=== PATIENT | female | born 1945 | race Caucasian/White ===

== ENCOUNTER 2021-09-30 10:23 | Day surgery (SDC) | payer MEDICARE ==
[2021-09-30] VITALS (9 sets, daily range): BP systolic 96–129; BP diastolic 61–86
[~2021-09-30] VITALS: Ht 162.6 cm; Wt 85.1 kg
[2021-09-30] MEDS ORDERED: diphenhydrAMINE 25mg capsule PO PRN (10:55)
[2021-09-30] MEDS ORDERED: LORazepam 0.5 MG tablet PO PRN (10:55)
[2021-09-30] MEDS ORDERED: normal saline 1,000 ML IV SCH (10:55)
[2021-09-30] MEDS ORDERED: BUDE10.2 INH (11:01)
[2021-09-30] MEDS ORDERED: MONT-40 PO (11:01)
[2021-09-30] MEDS ORDERED: ATOR10TA70 PO (11:01)
[2021-09-30] MEDS ORDERED: METO-384 PO (11:01)
[2021-09-30] MEDS ORDERED: LEVO125T8 PO (11:01)
[2021-09-30] MEDS ORDERED: ALBU8.5H17 INH (11:01)
[2021-09-30] MEDS ORDERED: IRBE300T18 PO (11:01)
[2021-09-30] MEDS ORDERED: OMEP40CA21 PO (11:01)
[2021-09-30] MEDS ORDERED: GABA600T13 PO (11:01)
[2021-09-30] MEDS ORDERED: FLUT15.87 NS (11:01)
[2021-09-30] MEDS ORDERED: POTA-207 PO (11:01)
[2021-09-30] MEDS ORDERED: EMPA25TA PO (11:01)
[2021-09-30] MEDS ORDERED: DULO60CA65 PO (11:01)
[2021-09-30] MEDS ORDERED: AMLO10TA13 PO (11:01)
[2021-09-30 11:48] LABS: ANION GAP 10 (8-16); BLOOD UREA NITROGEN 17 MG/DL (7-18); BUN/CREATININE RATIO 13.1 (6.6-38.0); CALCIUM 9.4 MG/DL (8.5-10.1); CHLORIDE 108 MMOL/L (99-107); GLUCOSE 126 MG/DL (70-104); POTASSIUM 4.7 MMOL/L (3.5-5.1); SODIUM 147 MMOL/L (135-145); TOTAL CARBON DIOXIDE 28.6 MMOL/L (24-32); eGFR 40 ML/MIN
[2021-09-30 11:49] LABS: BASOPHILS % (AUTO) 0.5 % (0-1); EOSINOPHILS # (AUTO) 0.1 X10'3 (0-0.9); HEMATOCRIT 43.1 % (35.0-45.0); HEMOGLOBIN 14.6 g/dl (12.0-16.0); LYMPHOCYTES # (AUTO) 1.3 X10'3 (1.1-4.8); LYMPHOCYTES % (AUTO) 24.4 % (21-51); MEAN CORPUSCULAR HEMOGLOBIN 32.8 PG (27.0-31.0); MEAN CORPUSCULAR HGB CONC 33.8 g/dL (33.0-36.5); MEAN PLATELET VOLUME 8.7 FL (7.4-10.4); MONOCYTES # (AUTO) 0.4 X10'3 (0-0.9); MONOCYTES % (AUTO) 7.5 % (2-12); NEUTROPHILS # (AUTO) 3.5 X10'3 (1.8-7.7); NEUTROPHILS % (AUTO) 65.6 % (42-75); PLATELET COUNT 159 X10'3 (140-440); RED BLOOD COUNT 4.44 X10'6 (4.20-5.60); RED CELL DISTRIBUTION WIDTH 13.5 % (11.5-14.5); WHITE BLOOD COUNT 5.4 X10'3 (4.5-11.0)
[2021-09-30] MEDS ORDERED: verapamil 2.5 mg/ml inj IV ONE (11:59)
[2021-09-30] MEDS ORDERED: nitroGLYCERIN-Tridil 50MG/D5W 250 ML IV ONE (11:59)
[2021-09-30] MEDS ORDERED: midazolam 1 mg/ML 2ml injection ONE (11:59)
[2021-09-30] MEDS ORDERED: iohexol 350MG/ML 100ml bottle IV ONE ×3 (12:00→13:29)
[2021-09-30] MEDS ORDERED: fentaNYL/PF 50MCG/1 ML 2ML syringe ONE (12:00)
[2021-09-30] MEDS ORDERED: heparin 1,000unit/ml 10ml vial 10 ML ONE (12:00)
[2021-09-30] MEDS ORDERED: LIDOcaine 1%/PF 5ML 10 MG/ML VIAL ONE (12:00)
[2021-09-30 12:14] LABS: APTT 25 SECONDS (22-32)
[2021-09-30] MEDS ORDERED: clopidogrel 300mg tablet ONE (13:13)
[2021-09-30] MEDS ORDERED: aspirin 325mg tablet ONE (13:17)
[2021-09-30] MEDS ORDERED: HYDROcodone/acetaminophen 10/325mg tab PO PRN (14:15)
[2021-09-30] MEDS ORDERED: HYDROcodone/acetaminophen 5mg/325mg tablet PO PRN (14:15)
== END 2021-09-30 17:05 | disposition home or self-care (01) ==
LOC: SSTAY O 10:23
PROVIDERS: ATTEND Student in an Organized Health Care Education/Training Program
DX: R94.39 Abnormal result of other cardiovascular function study (principal); I25.10 Atherosclerotic heart disease of native coronary artery without angina pectoris; I27.20 Pulmonary hypertension, unspecified; E11.22 Type 2 diabetes mellitus with diabetic chronic kidney disease; I12.9 Hypertensive chronic kidney disease with stage 1 through stage 4 chronic kidney disease, or unspecified chronic kidney disease; N18.9 Chronic kidney disease, unspecified; G47.33 Obstructive sleep apnea (adult) (pediatric); Z79.899 Other long term (current) drug therapy; Z79.01 Long term (current) use of anticoagulants; K21.9 Gastro-esophageal reflux disease without esophagitis
CPT/HCPCS: 36415; 80048; 82948; 85025; 85610; 85730; 93005; 93458; 99152; 99153; C1725; C1751; C1769; C1874; C1894; C9600; J1644; J2250; J3010; J3490; J7030; Q0163; Q9967; A6258; A6402

== ENCOUNTER 2021-10-08 14:14 | Emergency (ER) | payer MEDICARE ==
[~2021-10-08] VITALS: Ht 162.6 cm; Wt 89.1 kg
[~2021-10-08 14:14] MED LIST: ALBU8.5H17 INH; AMLO10TA13 PO; ATOR10TA70 PO; BUDE10.2 INH; DULO60CA65 PO; EMPA25TA PO; FLUT15.87 NS; GABA600T13 PO; IRBE300T18 PO; LEVO125T8 PO; METO-384 PO; MONT-40 PO; OMEP40CA21 PO; POTA-207 PO
[2021-10-08 14:47] LABS: BASOPHILS % (AUTO) 0.5 % (0-1); EOSINOPHILS % (AUTO) 0.4 % (0-6); HEMATOCRIT 42.5 % (35.0-45.0); HEMOGLOBIN 14.2 g/dl (12.0-16.0); LYMPHOCYTES # (AUTO) 0.2 X10'3 (1.1-4.8); LYMPHOCYTES % (AUTO) 3.5 % (21-51); MEAN CORPUSCULAR HEMOGLOBIN 32.6 PG (27.0-31.0); MEAN CORPUSCULAR HGB CONC 33.5 g/dL (33.0-36.5); MEAN CORPUSCULAR VOLUME 97.2 FL (78-98); MEAN PLATELET VOLUME 8.5 FL (7.4-10.4); MONOCYTES # (AUTO) 0.3 X10'3 (0-0.9); MONOCYTES % (AUTO) 4.8 % (2-12); NEUTROPHILS # (AUTO) 6.4 X10'3 (1.8-7.7); NEUTROPHILS % (AUTO) 90.8 % (42-75); PLATELET COUNT 132 X10'3 (140-440); RED BLOOD COUNT 4.37 X10'6 (4.20-5.60); RED CELL DISTRIBUTION WIDTH 13.7 % (11.5-14.5); WHITE BLOOD COUNT 7.1 X10'3 (4.5-11.0)
[2021-10-08 14:56] LABS: ANION GAP 10 (8-16); BILIRUBIN,TOTAL 0.7 MG/DL (0.1-1.0); BLOOD UREA NITROGEN 17 MG/DL (7-18); BUN/CREATININE RATIO 12.3 (6.6-38.0); CHLORIDE 100 MMOL/L (99-107); CREATININE 1.38 MG/DL (0.40-0.90); GLUCOSE 149 MG/DL (70-104); SODIUM 138 MMOL/L (135-145); TOTAL CARBON DIOXIDE 27.7 MMOL/L (24-32); TOTAL PROTEIN 7.4 G/DL (6.4-8.2); eGFR 37 ML/MIN
[2021-10-08 14:57] LABS: ALANINE AMINOTRANSFERASE 34 U/L (12-78); ALBUMIN 3.5 G/DL (3.4-5.0); ALBUMIN/GLOBULIN RATIO 0.9 (1.1-1.5); ALKALINE PHOSPHATASE 56 IU/L (46-116); ASPARTATE AMINO TRANSFERASE 58 U/L (10-37)
[2021-10-08] MEDS ORDERED: acetaminophen 325mg tablet PO STA (17:29)
--- NOTE | 2021-10-08 18:05 | NUR ---
76YR OLD FEMALE PATIENT, AWAKE, ALERT AND ORIENTEDX4. ON ROOM AIR, NO FORM OF DISTRESS. VSS. COVID/FLU SWAB COLLECTED
[2021-10-08 18:25] LABS: CLARITY,URINE CLEAR (Clear); COLOR,URINE YELLOW (Yellow); GLUCOSE, URINE >=1000 mg/dl (Neg); KETONES,URINE TRACE mg/dl (Neg); LEUKOCYTE ESTERASE ,URINE NEGATIVE (Neg); NITRITES, URINE NEGATIVE (Neg); OCCULT BLOOD,URINE SMALL (Neg); PROTEIN,URINE 30 mg/dl (Neg)
[2021-10-08 18:34] LABS: D-DIMER 1.76 MG/L FEU (0-0.50)
[2021-10-08 18:34] LABS: UA COLLECTION TYPE CLN CATCH MIDSTREAM
[2021-10-08 18:42] LABS: BACTERIA,URINE FEW /HPF (Neg); MUCUS STRANDS MODERATE /LPF (Neg); RBC,URINE 0-2 /HPF (0-2); SQUAMOUS EPITHELIAL CELL,UR FEW /LPF (FEW); WBC,URINE 0-4 /HPF (0-4)
[2021-10-08 18:43] LABS: TRANSITIONAL EPI CELLS,URINE FEW /HPF; YEAST FEW /HPF (NEGATIVE)
[2021-10-08] MEDS ORDERED: iohexol 350MG/ML 100ml bottle IV ONE (19:44)
--- NOTE | 2021-10-08 19:51 | NUR ---
PT TO CT
[2021-10-08 21:33] VITALS: BP 116/74
== END 2021-10-08 21:34 | disposition home or self-care (01) ==
LOC: ER 14:15
DX: R53.1 Weakness (principal); R06.02 Shortness of breath; R50.9 Fever, unspecified; J44.9 Chronic obstructive pulmonary disease, unspecified; K21.9 Gastro-esophageal reflux disease without esophagitis; E11.9 Type 2 diabetes mellitus without complications; Z87.891 Personal history of nicotine dependence
CPT/HCPCS: 36415; 71045; 71275; 80053; 81001; 83880; 84145; 84484; 85025; 85379; 87502; 87503; 87635; 93005; 99285; C9803; J3490; Q9967

== ENCOUNTER 2021-10-10 11:27 | Inpatient (IN) | payer MEDICARE ==
[~2021-10-10] VITALS: Ht 162.6 cm; Wt 92.3 kg
--- NOTE | 2021-10-10 12:10 | NUR ---
Pt c/o sb, denies cp or other sx, connceted to chicken cleaner and o2 bnc @2ltrs.
[2021-10-10] MEDS ORDERED: DOXYCYCLINE 100MG CAPSULE PO STA (13:23)
[2021-10-10] MEDS ORDERED: CefTRIAXone/D5W-Rocephin 1gm 50 ML IV ONE (13:25)
[2021-10-10] MEDS ORDERED: acetaminophen 325mg tablet PO ONE (13:25)
[2021-10-10] MEDS ORDERED: ringers solution, lacted 1,000 ML IV ONE ×2 (13:30→14:55)
[2021-10-10 13:43] LABS: CLARITY,URINE CLEAR (Clear); COLOR,URINE YELLOW (Yellow); GLUCOSE, URINE 500 mg/dl (Neg); KETONES,URINE 40 mg/dl (Neg); LEUKOCYTE ESTERASE ,URINE NEGATIVE (Neg); NITRITES, URINE NEGATIVE (Neg); OCCULT BLOOD,URINE MODERATE (Neg); PROTEIN,URINE 100 mg/dl (Neg)
[2021-10-10 13:44] LABS: BASOPHILS % (AUTO) 0.1 % (0-1); EOSINOPHILS % (AUTO) 0 % (0-6); HEMATOCRIT 42.7 % (35.0-45.0); HEMOGLOBIN 14.4 g/dl (12.0-16.0); LYMPHOCYTES # (AUTO) 0.1 X10'3 (1.1-4.8); LYMPHOCYTES % (AUTO) 1.3 % (21-51); MEAN CORPUSCULAR HEMOGLOBIN 32.8 PG (27.0-31.0); MEAN CORPUSCULAR HGB CONC 33.8 g/dL (33.0-36.5); MEAN PLATELET VOLUME 8.9 FL (7.4-10.4); MONOCYTES # (AUTO) 0.2 X10'3 (0-0.9); MONOCYTES % (AUTO) 2.2 % (2-12); NEUTROPHILS # (AUTO) 8.4 X10'3 (1.8-7.7); NEUTROPHILS % (AUTO) 96.4 % (42-75); PLATELET COUNT 108 X10'3 (140-440); RED CELL DISTRIBUTION WIDTH 13.5 % (11.5-14.5); WHITE BLOOD COUNT 8.7 X10'3 (4.5-11.0)
[2021-10-10 13:54] LABS: UA COLLECTION TYPE STRAIGHT CATH
[2021-10-10 13:57] LABS: ALANINE AMINOTRANSFERASE 42 U/L (12-78); ALBUMIN/GLOBULIN RATIO 0.7 (1.1-1.5); ALKALINE PHOSPHATASE 63 IU/L (46-116); ANION GAP 14 (8-16); ASPARTATE AMINO TRANSFERASE 62 U/L (10-37); BILIRUBIN,TOTAL 1.4 MG/DL (0.1-1.0); BLOOD UREA NITROGEN 23 MG/DL (7-18); BUN/CREATININE RATIO 15.9 (6.6-38.0); CALCIUM 8.7 MG/DL (8.5-10.1); CHLORIDE 97 MMOL/L (99-107); CREATININE 1.45 MG/DL (0.40-0.90); GLUCOSE 136 MG/DL (70-104); POTASSIUM 3.7 MMOL/L (3.5-5.1); SODIUM 135 MMOL/L (135-145); TOTAL CARBON DIOXIDE 23.7 MMOL/L (24-32); TOTAL PROTEIN 7.1 G/DL (6.4-8.2); eGFR 35 ML/MIN
[2021-10-10 14:01] LABS: MUCUS STRANDS FEW /LPF (Neg); SQUAMOUS EPITHELIAL CELL,UR FEW /LPF (FEW)
[2021-10-10 14:02] LABS: BACTERIA,URINE 1+ /HPF (Neg); RBC,URINE 0-2 /HPF (0-2); WBC,URINE 0-4 /HPF (0-4)
[2021-10-10 14:02] LABS: MAGNESIUM 1.8 MG/DL (1.5-2.4)
[2021-10-10] MEDS ORDERED: vancomycin/NS 1 GM ADD-VANTAGE 250 ML X 1 DOSE IV ONE (15:05)
--- NOTE | 2021-10-10 16:25 | NUR ---
Repositioned pt in bed, no acute distress noted, pt continues to be monitored for changes.
--- NOTE | 2021-10-10 16:46 | NUR ---
CRITICAL LAB OF REPEAT TROPONIN OF 133. DR. SALGADO MESSAGED WITH RESULT. MESSAGE: ER BED #1: HAL. REPEAT TROPONIN 133. THANKS, JA [id number]
--- NOTE | 2021-10-10 17:30 | NUR ---
Pt had large brown, liquid bowel movement, Dr Cali at bedside ordered stool sample for c-diff.
[2021-10-10] MEDS ORDERED: mag hydrox/Alum hydrox/simeth 30ml oral suspension PO PRN (18:25)
[2021-10-10] MEDS ORDERED: magnesium 4gm in 100ml NS 100 ML IV PRN (18:25)
[2021-10-10] MEDS: normal saline 1000ml 1,000 ML IV SCH (18:25)
[2021-10-10] MEDS ORDERED: ondansetron/PF 4mg/2ml inj IV PRN (18:25)
[2021-10-10] MEDS ORDERED: POTASSIUM BICARB 20meq eff tab 20 MEQ TABLET.EFF PO PRN (18:25)
[2021-10-10] MEDS ORDERED: acetaminophen 650mg rectal suppository RC PRN (18:25)
[2021-10-10] MEDS ORDERED: magnesium hydroxide 30ml (MOM) UD suspension PO PRN (18:25)
[2021-10-10] MEDS ORDERED: heparin 10,000 units/1 ML INJ IV ONE (18:25)
[2021-10-10] MEDS ORDERED: diphenhydrAMINE 25mg capsule PO PRN (18:25)
[2021-10-10] MEDS ORDERED: HYDROcodone/acetaminophen 5mg/325mg tablet PO PRN (18:25)
[2021-10-10] MEDS ORDERED: potassium CL 10mEq/100ml bag 100 ML IV PRN (18:25)
[2021-10-10] MEDS ORDERED: PERFLUTREN PROTEIN-A MICROSPHR (Optison) 0.22 MG/ML 3ML VIAL IV ONE (18:25)
[2021-10-10] MEDS ORDERED: magnesium 2GM in 50ml NS 50 ML IV PRN (18:25)
[2021-10-10] MEDS ORDERED: magnesium Cl slow-release 64mg tablet PO PRN (18:25)
[2021-10-10] MEDS ORDERED: morphine 2 MG/ML inj. syringe IV PRN ×2 (18:25)
[2021-10-10] MEDS ORDERED: acetaminophen 325mg tablet PO PRN ×2 (18:25)
[2021-10-10] MEDS ORDERED: CLOP75TA34 PO (18:45)
[2021-10-10] MEDS ORDERED: OXYB10TA30 PO (18:45)
[2021-10-10] MEDS ORDERED: METO-384 PO (18:45)
[2021-10-10] MEDS ORDERED: ATOR40TA72 PO (18:45)
[2021-10-10] MEDS: HEPARIN SOD,PORK IN 0.45% NACL 250 ML IV SCH (18:46)
[2021-10-10] MEDS: clopidogrel 75mg tablet PO SCH (18:55)
[2021-10-10] MEDS ORDERED: albuterol 2.5 MG/3 ML nebule NEB PRN (18:55)
[2021-10-10] MEDS ORDERED: aspirin 81mg tab.chew PO ONE (19:00)
[2021-10-10] MEDS ORDERED: glucagon, human recombinant 1mg kit SUBCUT PRN (19:00)
[2021-10-10] MEDS ORDERED: dextrose 50%-water 50ml dispensing syringe IV PRN ×2 (19:00)
[2021-10-10] MEDS ORDERED: DEXTROSE 15 GM of carb/4 tabs (each vial/BOTTLE has 4 tablets) PO PRN ×2 (19:00)
[2021-10-10] MEDS ORDERED: MESSAGE TO PHARMACY PO ONE (19:00)
[2021-10-10] MEDS ORDERED: aspirin 325mg tablet PO ONE (19:00)
[2021-10-10] MEDS: docusate sod 100mg capsule PO SCH (20:00)
[2021-10-10] MEDS: K and/or MAG REPLACEMENT MC SCH (20:00)
[2021-10-10] MEDS ORDERED: non-formulary drug (Budesonide/Formoterol Fumarate (Symbicort 160-4.5 Mcg Inhaler) 2 PUFFS INH SCH (20:00)
[2021-10-10 20:44] LABS: APTT 131 SECONDS (22-32)
[2021-10-10] MEDS: lactobacillus rhamnosus 10,000 MMU CELLS/CAPSULE PO SCH (20:44)
[2021-10-10] MEDS: gabapentin 300mg capsule PO SCH (20:44)
[2021-10-10] MEDS: atorvastatin 20mg tablet PO SCH (20:45)
[2021-10-10] MEDS: metoprolol succinate 25mg (24-HOUR) SR. Tablet PO SCH (20:46)
[2021-10-10] MEDS: piperacillin/tazo 3.375gm/50ml 50 ML IV SCH (20:46)
[2021-10-10 20:59] LABS: HEMOGLOBIN A1C 6.5 % (4.5-6.2)
--- NOTE | 2021-10-10 21:26 | NUR ---
PTT DRAWN WITHOUT STOPPING HEPARIN. NIRAJ MADDEN AWARE. PTT IS BEING REDRAWN
[2021-10-10] MEDS: insulin glargine (Lantus) pen - multi-dose SQ SCH (21:40)
[2021-10-10 21:55] LABS: APTT 63 SECONDS (22-32)
[2021-10-10 22:00] VITALS: BP 117/70
--- NOTE | 2021-10-10 22:33 | NUR ---
Patient Troponin was 207 at 22:00 PM, notified no new order. Patient BS at 21:40 PM was 145, it is not protocol, Patient does not need lantus
[2021-10-10 23:16] VITALS: BP 112/61
[2021-10-10 23:17] VITALS: BP 105/61
[2021-10-10] MEDS: albuterol 2.5 MG/3 ML nebule NEB SCH (23:58)
[2021-10-10] MEDS: budesonide 0.5mg/2ml UD nebule IH SCH (23:58)
[2021-10-11] VITALS (8 sets, daily range): BP systolic 105–152; BP diastolic 54–76
[2021-10-11] MEDS: albuterol 2.5 MG/3 ML nebule NEB SCH ×3 (02:16→14:31)
[2021-10-11 06:35] LABS: BASOPHILS % (AUTO) 0.2 % (0-1); EOSINOPHILS % (AUTO) 0.1 % (0-6); HEMATOCRIT 38.1 % (35.0-45.0); HEMOGLOBIN 12.7 g/dl (12.0-16.0); LYMPHOCYTES # (AUTO) 0.4 X10'3 (1.1-4.8); LYMPHOCYTES % (AUTO) 9.5 % (21-51); MEAN CORPUSCULAR HEMOGLOBIN 32.4 PG (27.0-31.0); MEAN CORPUSCULAR HGB CONC 33.3 g/dL (33.0-36.5); MEAN CORPUSCULAR VOLUME 97.2 FL (78-98); MONOCYTES # (AUTO) 0.3 X10'3 (0-0.9); MONOCYTES % (AUTO) 5.4 % (2-12); NEUTROPHILS % (AUTO) 84.8 % (42-75); PLATELET COUNT 100 X10'3 (140-440); RED BLOOD COUNT 3.92 X10'6 (4.20-5.60); RED CELL DISTRIBUTION WIDTH 13.8 % (11.5-14.5); WHITE BLOOD COUNT 4.7 X10'3 (4.5-11.0)
[2021-10-11 06:44] LABS: ALANINE AMINOTRANSFERASE 40 U/L (12-78); ALBUMIN 2.6 G/DL (3.4-5.0); ALBUMIN/GLOBULIN RATIO 0.8 (1.1-1.5); ALKALINE PHOSPHATASE 47 IU/L (46-116); ANION GAP 10 (8-16); ASPARTATE AMINO TRANSFERASE 57 U/L (10-37); BILIRUBIN,TOTAL 0.7 MG/DL (0.1-1.0); BLOOD UREA NITROGEN 22 MG/DL (7-18); BUN/CREATININE RATIO 18.5 (6.6-38.0); CALCIUM 8.1 MG/DL (8.5-10.1); CHLORIDE 105 MMOL/L (99-107); CREATININE 1.19 MG/DL (0.40-0.90); GLUCOSE 105 MG/DL (70-104); POTASSIUM 3.2 MMOL/L (3.5-5.1); SODIUM 141 MMOL/L (135-145); TOTAL CARBON DIOXIDE 26.5 MMOL/L (24-32); TOTAL PROTEIN 5.9 G/DL (6.4-8.2); eGFR 44 ML/MIN
[2021-10-11 06:46] LABS: CHOL/HDL RATIO 6.3 (0.00-4.99); CHOLESTEROL 107 MG/DL (0-200); HDL CHOLESTEROL 17 MG/DL (35-60); LDL CHOLESTEROL 47 MG/DL (50-100); PHOSPHORUS 2.5 MG/DL (2.3-4.5); TRIGLYCERIDES 223 MG/DL (20-135)
--- NOTE | 2021-10-11 07:04 | NUR ---
Problems reprioritized. Patient report given to RN Siobhan, questions answered & plan of care reviewed with .
[2021-10-11] MEDS: docusate sod 100mg capsule PO SCH ×2 (07:28→19:44)
[2021-10-11] MEDS: levoTHYROXINE 125mcg tablet PO SCH (07:37)
[2021-10-11] MEDS: pantoprazole 40mg Tablet.DR PO SCH (07:38)
[2021-10-11] MEDS: losartan 50mg tablet PO SCH (07:38)
[2021-10-11] MEDS: lactobacillus rhamnosus 10,000 MMU CELLS/CAPSULE PO SCH ×2 (07:38→19:45)
[2021-10-11] MEDS: montelukast 10mg tablet PO SCH (07:38)
[2021-10-11] MEDS: duloxetine 20mg capsule.DR PO SCH (07:38)
[2021-10-11] MEDS: clopidogrel 75mg tablet PO SCH (07:39)
[2021-10-11] MEDS: piperacillin/tazo 3.375gm/50ml 50 ML IV SCH ×2 (07:39→16:15)
[2021-10-11] MEDS: oxybutynin 5mg tablet PO SCH ×3 (07:39→19:49)
[2021-10-11] MEDS: metoprolol succinate 25mg (24-HOUR) SR. Tablet PO SCH ×2 (07:39→22:13)
[2021-10-11] MEDS: gabapentin 300mg capsule PO SCH ×2 (07:39→19:44)
[2021-10-11] MEDS: amLODIPine 5mg tablet PO SCH (07:39)
[2021-10-11] MEDS: fluticasone nasal spray 16GM bottle NS SCH (07:40)
[2021-10-11] MEDS: heparin 10,000 units/1 ML INJ IV PRN (07:43)
[2021-10-11] MEDS: normal saline 1000ml 1,000 ML IV SCH ×2 (07:45→12:51)
[2021-10-11] MEDS: budesonide 0.5mg/2ml UD nebule IH SCH (08:16)
[2021-10-11] MEDS: K and/or MAG REPLACEMENT MC SCH ×2 (08:55→20:00)
[2021-10-11 09:00] LABS: C DIFF SPECIMEN=DIARRHEA? ACCEPTABLE; C DIFFICILE TOXINS A&B NEGATIVE (Neg)
--- NOTE | 2021-10-11 14:49 | NUR ---
Message: Mery Huggins has change in condition, work of breathing worse, wheezy, RT TX no help. placed on 3 lpm NC. Can we get ABG CXR and EKG please Siobhan Pt c/o chilling but afibrile. RT came for tx found her at 81% completed tx and placed on 3 lpm. Notified rn hemodialysis charge. Orders rec'd from Dr Cali . will continue to monitor closely.
[2021-10-11 15:12] LABS: ABG BASE EXCESS -4.1 mmol/L (-2.0-2.0); ABG HCO3 19.8 mmol/L (22.0-26.0); ABG OXYGEN SATURATION 94.7 % (94-97); ABG PCO2 (T) 32.8 mmHg (32.0-45.0); ABG PO2 (T) 69.8 mmHg (75.0-100.0); ALLEN'S TEST POSITIVE; FCOHb 0.1 % (0.0-3.9); FLOW 3 L/min; FMetHb 0.3 % (0.0-1.5); FO2Hb 94.3 % (94-97); TOTAL HEMOGLOBIN 13.6 G/dl (12.0-16.0)
[2021-10-11] MEDS ORDERED: methylPREDNISolone sod succ 125mg/2ml vial IV ONE (15:45)
[2021-10-11] MEDS ORDERED: ipratropium/albuterol 3ml nebule NEB PRN (15:45)
[2021-10-11] MEDS ORDERED: furosemide 10 MG/1 ML 10ml inj IV ONE (15:50)
[2021-10-11] MEDS ORDERED: vancomycin inj 500 MG in normal saline 100ml IV soln 100 ML IV SCH (16:00)
--- NOTE | 2021-10-11 16:05 | NUR ---
Reported pt rash to back from neck to upper thighs posterior only, pt being placed on Solumedrol.
[2021-10-11] MEDS: VANCOMYCIN 750MG IV in NS 250 ML IV SCH (16:15)
[2021-10-11 18:18] LABS: CLARITY,URINE CLEAR (Clear); COLOR,URINE YELLOW (Yellow); GLUCOSE, URINE 250 mg/dl (Neg); KETONES,URINE NEGATIVE (Neg); LEUKOCYTE ESTERASE ,URINE NEGATIVE (Neg); NITRITES, URINE NEGATIVE (Neg); OCCULT BLOOD,URINE TRACE-INTACT (Neg); PROTEIN,URINE NEGATIVE (Neg); UROBILINOGEN,URINE 0.2 E.U/dL (0.2-1.0)
[2021-10-11 18:30] LABS: UA COLLECTION TYPE STRAIGHT CATH
--- NOTE | 2021-10-11 18:35 | NUR ---
Patient in room PCU 3011. I have received report from Siobhan VILLARREAL and had the opportunity to ask questions and assume patient care.
[2021-10-11 18:41] LABS: BACTERIA,URINE FEW /HPF (Neg); RBC,URINE 0-2 /HPF (0-2); SQUAMOUS EPITHELIAL CELL,UR FEW /LPF (FEW); WBC,URINE NONE SEEN /HPF (0-4)
--- NOTE | 2021-10-11 18:43 | NUR ---
Problems reprioritized. Patient report given, questions answered & plan of care reviewed with CHERELLE Segal.
[2021-10-11] MEDS: ipratropium/albuterol 3ml nebule NEB SCH ×2 (18:52→23:19)
[2021-10-11] MEDS: furosemide 40mg/4ml inj IV SCH (19:44)
[2021-10-11] MEDS: methylPREDNISolone sod succ 125mg/2ml vial IV SCH (19:44)
[2021-10-11] MEDS: HYDROcodone/acetaminophen 10/325mg tab PO PRN (19:46)
[2021-10-11] MEDS: POTASSIUM BICARB 20meq eff tab 20 MEQ TABLET.EFF PO PRN (22:13)
[2021-10-11] MEDS: atorvastatin 20mg tablet PO SCH (22:14)
[2021-10-11] MEDS: insulin glargine (Lantus) pen - multi-dose SQ SCH (22:47)
--- NOTE | 2021-10-11 23:00 | NUR ---
Pt found to be diaphoretic while sleeping.
[2021-10-12] VITALS (7 sets, daily range): BP systolic 92–111; BP diastolic 53–66
[2021-10-12] MEDS: piperacillin/tazo 3.375gm/50ml 50 ML IV SCH ×2 (00:39→09:58)
[2021-10-12] MEDS: HYDROcodone/acetaminophen 10/325mg tab PO PRN (00:40)
[2021-10-12] MEDS: POTASSIUM BICARB 20meq eff tab 20 MEQ TABLET.EFF PO PRN ×4 (02:38→20:44)
[2021-10-12] MEDS: methylPREDNISolone sod succ 125mg/2ml vial IV SCH ×4 (02:38→20:44)
[2021-10-12] MEDS: ipratropium/albuterol 3ml nebule NEB SCH ×6 (02:39→22:45)
[2021-10-12] MEDS: HEPARIN SOD,PORK IN 0.45% NACL 250 ML IV SCH (02:59)
[2021-10-12 06:30] LABS: BASOPHILS % (AUTO) 0.4 % (0-1); EOSINOPHILS % (AUTO) 0 % (0-6); HEMATOCRIT 39.9 % (35.0-45.0); HEMOGLOBIN 13.4 g/dl (12.0-16.0); LYMPHOCYTES # (AUTO) 0.4 X10'3 (1.1-4.8); LYMPHOCYTES % (AUTO) 8.7 % (21-51); MEAN CORPUSCULAR HEMOGLOBIN 32.8 PG (27.0-31.0); MEAN CORPUSCULAR HGB CONC 33.6 g/dL (33.0-36.5); MEAN CORPUSCULAR VOLUME 97.5 FL (78-98); MEAN PLATELET VOLUME 9.1 FL (7.4-10.4); MONOCYTES # (AUTO) 0.1 X10'3 (0-0.9); MONOCYTES % (AUTO) 3.4 % (2-12); NEUTROPHILS # (AUTO) 3.6 X10'3 (1.8-7.7); NEUTROPHILS % (AUTO) 87.5 % (42-75); PLATELET COUNT 98 X10'3 (140-440); RED BLOOD COUNT 4.09 X10'6 (4.20-5.60); RED CELL DISTRIBUTION WIDTH 13.9 % (11.5-14.5); WHITE BLOOD COUNT 4.1 X10'3 (4.5-11.0)
--- NOTE | 2021-10-12 07:32 | NUR ---
Problems reprioritized. Patient report given, questions answered & plan of care reviewed with [place] RN.
[2021-10-12 07:43] LABS: ALANINE AMINOTRANSFERASE 49 U/L (12-78); ALBUMIN 2.4 G/DL (3.4-5.0); ALBUMIN/GLOBULIN RATIO 0.6 (1.1-1.5); ALKALINE PHOSPHATASE 53 IU/L (46-116); ANION GAP 10 (8-16); ASPARTATE AMINO TRANSFERASE 54 U/L (10-37); BILIRUBIN,TOTAL 0.6 MG/DL (0.1-1.0); BLOOD UREA NITROGEN 26 MG/DL (7-18); BUN/CREATININE RATIO 18.6 (6.6-38.0); CALCIUM 8.7 MG/DL (8.5-10.1); CHLORIDE 102 MMOL/L (99-107); GLUCOSE 224 MG/DL (70-104); PHOSPHORUS 3.5 MG/DL (2.3-4.5); POTASSIUM 3.4 MMOL/L (3.5-5.1); SODIUM 140 MMOL/L (135-145); TOTAL CARBON DIOXIDE 27.6 MMOL/L (24-32); TOTAL PROTEIN 6.1 G/DL (6.4-8.2); eGFR 36 ML/MIN
[2021-10-12] MEDS: K and/or MAG REPLACEMENT MC SCH ×2 (08:00→20:00)
[2021-10-12] MEDS: losartan 50mg tablet PO SCH (08:00)
[2021-10-12] MEDS: amLODIPine 5mg tablet PO SCH (08:00)
[2021-10-12] MEDS: docusate sod 100mg capsule PO SCH ×2 (08:00→20:42)
[2021-10-12] MEDS: metoprolol succinate 25mg (24-HOUR) SR. Tablet PO SCH ×2 (08:00→20:42)
[2021-10-12] MEDS: pantoprazole 40mg Tablet.DR PO SCH (09:35)
[2021-10-12] MEDS: duloxetine 20mg capsule.DR PO SCH (09:36)
[2021-10-12] MEDS: lactobacillus rhamnosus 10,000 MMU CELLS/CAPSULE PO SCH ×2 (09:36→20:42)
[2021-10-12] MEDS: montelukast 10mg tablet PO SCH (09:36)
[2021-10-12] MEDS: oxybutynin 5mg tablet PO SCH ×2 (09:37→20:41)
[2021-10-12] MEDS: gabapentin 300mg capsule PO SCH (09:37)
[2021-10-12] MEDS: clopidogrel 75mg tablet PO SCH (09:38)
[2021-10-12] MEDS: levoTHYROXINE 125mcg tablet PO SCH (09:39)
[2021-10-12] MEDS: furosemide 40mg/4ml inj IV SCH (09:42)
--- NOTE | 2021-10-12 12:59 | NUR ---
PRIMARY RN ADVISED NOT TO ADMIN BP MEDS FOR SYSTOLIC BELOW 100
[2021-10-12] MEDS: fluticasone nasal spray 16GM bottle NS SCH (13:06)
[2021-10-12] MEDS: insulin Lispro (HumaLOG) vial - multi-dose SQ SCH ×3 (14:40→22:41)
[2021-10-12] MEDS: VANCOMYCIN 750MG IV in NS 250 ML IV SCH (16:43)
[2021-10-12] MEDS: atorvastatin 20mg tablet PO SCH (20:42)
[2021-10-12] MEDS: nystatin 500,000 unit/5ML UD oral suspension PO SCH (20:43)
[2021-10-12] MEDS: aspirin 81mg tab.chew PO SCH (20:43)
[2021-10-12] MEDS: CefTRIAXone 2gm/D5W 50ml BAG 50 ML IV SCH (20:46)
[2021-10-12] MEDS: insulin glargine (Lantus) pen - multi-dose SQ SCH (22:39)
[2021-10-13 02:00] VITALS: BP 107/65
[2021-10-13] MEDS: ipratropium/albuterol 3ml nebule NEB SCH ×7 (02:34→23:26)
[2021-10-13 06:31] LABS: BASOPHILS % (AUTO) 0 % (0-1); EOSINOPHILS % (AUTO) 0 % (0-6); HEMATOCRIT 38.1 % (35.0-45.0); HEMOGLOBIN 12.6 g/dl (12.0-16.0); LYMPHOCYTES # (AUTO) 0.4 X10'3 (1.1-4.8); MEAN CORPUSCULAR HEMOGLOBIN 32.3 PG (27.0-31.0); MEAN PLATELET VOLUME 9.3 FL (7.4-10.4); MONOCYTES # (AUTO) 0.5 X10'3 (0-0.9); MONOCYTES % (AUTO) 5.4 % (2-12); NEUTROPHILS # (AUTO) 8.8 X10'3 (1.8-7.7); NEUTROPHILS % (AUTO) 90.6 % (42-75); PLATELET COUNT 103 X10'3 (140-440); RED BLOOD COUNT 3.89 X10'6 (4.20-5.60); RED CELL DISTRIBUTION WIDTH 14.1 % (11.5-14.5); WHITE BLOOD COUNT 9.7 X10'3 (4.5-11.0)
--- NOTE | 2021-10-13 06:58 | NUR ---
Patient in room PCU 3011. I have received report from oil well shooter Nurse and had the opportunity to ask questions and assume patient care.
[2021-10-13 07:02] LABS: ALANINE AMINOTRANSFERASE 39 U/L (12-78); ALBUMIN 2.5 G/DL (3.4-5.0); ALBUMIN/GLOBULIN RATIO 0.7 (1.1-1.5); ALKALINE PHOSPHATASE 49 IU/L (46-116); ANION GAP 12 (8-16); ASPARTATE AMINO TRANSFERASE 33 U/L (10-37); BILIRUBIN,TOTAL 0.4 MG/DL (0.1-1.0); BLOOD UREA NITROGEN 30 MG/DL (7-18); BUN/CREATININE RATIO 21.7 (6.6-38.0); CHLORIDE 101 MMOL/L (99-107); CREATININE 1.38 MG/DL (0.40-0.90); GLUCOSE 279 MG/DL (70-104); PHOSPHORUS 3.2 MG/DL (2.3-4.5); POTASSIUM 3.4 MMOL/L (3.5-5.1); SODIUM 138 MMOL/L (135-145); TOTAL CARBON DIOXIDE 24.9 MMOL/L (24-32); TOTAL PROTEIN 6.1 G/DL (6.4-8.2); eGFR 37 ML/MIN
[2021-10-13 07:14] LABS: CALCIUM 9.1 MG/DL (8.5-10.1)
[2021-10-13] MEDS: nystatin 500,000 unit/5ML UD oral suspension PO SCH ×3 (07:32→20:58)
[2021-10-13 08:00] VITALS: BP 102/66
[2021-10-13] MEDS: metoprolol succinate 25mg (24-HOUR) SR. Tablet PO SCH ×2 (08:00→21:00)
[2021-10-13] MEDS: amLODIPine 5mg tablet PO SCH (08:00)
[2021-10-13] MEDS: losartan 50mg tablet PO SCH (08:00)
[2021-10-13] MEDS: HEPARIN SOD,PORK IN 0.45% NACL 250 ML IV SCH ×4 (08:33→15:50)
[2021-10-13] MEDS: heparin 10,000 units/1 ML INJ IV PRN ×2 (08:33→15:53)
[2021-10-13] MEDS: pantoprazole 40mg Tablet.DR PO SCH (09:21)
[2021-10-13] MEDS: levoTHYROXINE 125mcg tablet PO SCH (09:21)
[2021-10-13] MEDS: docusate sod 100mg capsule PO SCH ×2 (09:22→19:17)
[2021-10-13] MEDS: lactobacillus rhamnosus 10,000 MMU CELLS/CAPSULE PO SCH ×2 (09:22→19:16)
[2021-10-13] MEDS: oxybutynin 5mg tablet PO SCH ×2 (09:23→19:16)
[2021-10-13] MEDS: clopidogrel 75mg tablet PO SCH (09:23)
[2021-10-13] MEDS: montelukast 10mg tablet PO SCH (09:23)
[2021-10-13] MEDS: gabapentin 300mg capsule PO SCH (09:24)
[2021-10-13] MEDS: duloxetine 20mg capsule.DR PO SCH (09:24)
[2021-10-13] MEDS: aspirin 81mg tab.chew PO SCH (09:24)
[2021-10-13] MEDS: methylPREDNISolone sod succ 125mg/2ml vial IV SCH ×2 (09:26→19:17)
[2021-10-13] MEDS: fluticasone nasal spray 16GM bottle NS SCH (09:27)
[2021-10-13] MEDS: CefTRIAXone 2gm/D5W 50ml BAG 50 ML IV SCH (09:27)
[2021-10-13] MEDS: insulin Lispro (HumaLOG) vial - multi-dose SQ SCH ×3 (09:48→19:14)
[2021-10-13] MEDS: POTASSIUM BICARB 20meq eff tab 20 MEQ TABLET.EFF PO PRN (11:54)
[2021-10-13] MEDS: K and/or MAG REPLACEMENT MC SCH ×2 (11:56→20:00)
[2021-10-13 15:00] VITALS: BP 118/63
[2021-10-13] MEDS ORDERED: VANCOMYCIN LEVEL IV ONE (15:30)
[2021-10-13 18:00] VITALS: BP 143/75
[2021-10-13 20:00] VITALS: BP_SYST 138; BP_SYST 142; BP_DIAS 69; BP_DIAS 73
[2021-10-13] MEDS: atorvastatin 20mg tablet PO SCH (21:00)
[2021-10-13] MEDS: insulin glargine (Lantus) pen - multi-dose SQ SCH (21:12)
[2021-10-13 22:00] VITALS: BP 118/72
[2021-10-14 02:00] VITALS: BP 135/72
[2021-10-14] MEDS: ipratropium/albuterol 3ml nebule NEB SCH ×3 (02:31→11:33)
[2021-10-14 06:00] VITALS: BP 128/76
--- NOTE | 2021-10-14 06:00 | NUR ---
Patient in room PCU 3011. I have received report from CHERELLE Muñiz and had the opportunity to ask questions and assume patient care.
[2021-10-14] MEDS: nystatin 500,000 unit/5ML UD oral suspension PO SCH ×2 (07:53→13:48)
[2021-10-14] MEDS: aspirin 81mg tab.chew PO SCH (07:53)
[2021-10-14] MEDS: fluticasone nasal spray 16GM bottle NS SCH (07:53)
[2021-10-14 07:54] LABS: BASOPHILS % (AUTO) 0 % (0-1); EOSINOPHILS % (AUTO) 0 % (0-6); HEMATOCRIT 35.9 % (35.0-45.0); HEMOGLOBIN 12.1 g/dl (12.0-16.0); LYMPHOCYTES # (AUTO) 0.6 X10'3 (1.1-4.8); LYMPHOCYTES % (AUTO) 6.2 % (21-51); MEAN CORPUSCULAR HEMOGLOBIN 32.5 PG (27.0-31.0); MEAN CORPUSCULAR HGB CONC 33.7 g/dL (33.0-36.5); MEAN CORPUSCULAR VOLUME 96.4 FL (78-98); MEAN PLATELET VOLUME 9.2 FL (7.4-10.4); MONOCYTES # (AUTO) 0.5 X10'3 (0-0.9); NEUTROPHILS # (AUTO) 7.9 X10'3 (1.8-7.7); NEUTROPHILS % (AUTO) 87.8 % (42-75); PLATELET COUNT 123 X10'3 (140-440); RED BLOOD COUNT 3.72 X10'6 (4.20-5.60); RED CELL DISTRIBUTION WIDTH 13.9 % (11.5-14.5)
[2021-10-14] MEDS: amLODIPine 5mg tablet PO SCH (07:54)
[2021-10-14] MEDS: clopidogrel 75mg tablet PO SCH (07:54)
[2021-10-14] MEDS: duloxetine 20mg capsule.DR PO SCH (07:54)
[2021-10-14] MEDS: gabapentin 300mg capsule PO SCH (07:54)
[2021-10-14] MEDS: pantoprazole 40mg Tablet.DR PO SCH (07:54)
[2021-10-14] MEDS: levoTHYROXINE 125mcg tablet PO SCH (07:54)
[2021-10-14] MEDS: lactobacillus rhamnosus 10,000 MMU CELLS/CAPSULE PO SCH (07:55)
[2021-10-14] MEDS: losartan 50mg tablet PO SCH (07:55)
[2021-10-14] MEDS: montelukast 10mg tablet PO SCH (07:55)
[2021-10-14] MEDS: docusate sod 100mg capsule PO SCH (07:55)
[2021-10-14] MEDS: oxybutynin 5mg tablet PO SCH (07:55)
[2021-10-14] MEDS: metoprolol succinate 25mg (24-HOUR) SR. Tablet PO SCH (07:56)
[2021-10-14] MEDS: methylPREDNISolone sod succ 125mg/2ml vial IV SCH (07:56)
[2021-10-14] MEDS: CefTRIAXone 2gm/D5W 50ml BAG 50 ML IV SCH (07:56)
[2021-10-14 08:24] LABS: ALANINE AMINOTRANSFERASE 41 U/L (12-78); ALBUMIN 2.6 G/DL (3.4-5.0); ALBUMIN/GLOBULIN RATIO 0.7 (1.1-1.5); ALKALINE PHOSPHATASE 48 IU/L (46-116); ANION GAP 11 (8-16); ASPARTATE AMINO TRANSFERASE 35 U/L (10-37); BILIRUBIN,TOTAL 0.3 MG/DL (0.1-1.0); BLOOD UREA NITROGEN 30 MG/DL (7-18); BUN/CREATININE RATIO 24.4 (6.6-38.0); CALCIUM 9.8 MG/DL (8.5-10.1); CHLORIDE 102 MMOL/L (99-107); CREATININE 1.23 MG/DL (0.40-0.90); GLUCOSE 180 MG/DL (70-104); PHOSPHORUS 3.2 MG/DL (2.3-4.5); POTASSIUM 3.9 MMOL/L (3.5-5.1); SODIUM 142 MMOL/L (135-145); TOTAL CARBON DIOXIDE 28.8 MMOL/L (24-32); TOTAL PROTEIN 6.1 G/DL (6.4-8.2); eGFR 42 ML/MIN
--- NOTE | 2021-10-14 08:24 | NUR ---
Initial: Pt admitted w/ sepsis per EMR. Currently on Heart Healthy diet w/ variable intake, avg 52% of meals partially meeting needs. Pt could benefit from Ensure Enlive BID to assist w/ meeting needs. Consider adding Carb control diet if PO intake improves. LBM 10/11 receiving routine colace. Will continue to monitor. Recs: 1. Consider liberalizing to Regular diet if PO does not improve; consider adding Carb control diet if PO does improve 2. Ensure Enlive BIDBD; pending MD verification 3. Bowel care per rx 4. Weekly wts Addendum: 10/14/21 at [address] Amended: Links added.
[2021-10-14] MEDS: K and/or MAG REPLACEMENT MC SCH (08:54)
[2021-10-14] MEDS: insulin Lispro (HumaLOG) vial - multi-dose SQ SCH ×2 (09:13→13:48)
[2021-10-14] MEDS ORDERED: NYST1000 PO (10:38)
[2021-10-14] MEDS ORDERED: ASPI81TA53 PO (10:38)
[2021-10-14] MEDS ORDERED: LACT1CAP26 PO (10:38)
[2021-10-14] MEDS ORDERED: CEFD300C3 PO (10:38)
[2021-10-14 11:00] VITALS: BP 134/74
--- NOTE | 2021-10-14 14:30 | NUR ---
Pt discharged by sue Mcadams discontinued for voiding trials- pt voided, bladder scan showing 0cc. Reviewed discharge packet with pt, answered all questions, pt verbalized understanding of medications to be taken and follow up appts to be made. PIV and telemonitor discontinued, pt wheeled down to main entrance with all belongings. Pt in no signs of acute distress.
[2021-10-14] MEDS ORDERED: lactose-reduced food (Ensure Enlive) - 237ml bottle PO SCH (17:30)
--- NOTE | 2021-10-20 16:07 | NUR ---
Case Management DC follow up: Spoke with Patient via telephone. S/P: Patient Reports: Denies Acute/continuous CP, emergent SOB, resp distress, NV, vertigo, syncope episodes, orthostatic hypotension, ELWIS, blurry vision, s/s of stroke/BE-FAST, dysuria, hematuria, retention, abdominal pain/distention, hematochezia, melena, unexplained bruising, bleeding, fever, chills.Verbalizes understanding of s/s that warrant a 9-11/ER visit for further evaluation.Verbalizes understanding of new Rx: why prescribed; continues/resumes current Rx as ordered.Verbalizes she has some weakness; however, she feels stronger each day.Verbalizes she has scheduled follow up appointments: Dr. Smith 10/22/21, Dr.A Carlson 10/22/21, and is waiting for call from Rafaela Bill to schedule appointment.Verbalizes Dr. Cali was wonderful, number one in his care of her.Verbalizes the nurses, everybody , took great care of her. Verbalized home health came out for visit.Verbalized she dismissed H.H. because she is feeling better.Needs met, questions/concerns addressed at DC; no further questions/concerns regarding recent hospital stay and/or DC status at this time.
== END 2021-10-14 14:30 | disposition home health service (06) | DRG 871 ==
LOC: ER 11:28 → ED HOLD 18:34 → PCU 3S 21:30
PROVIDERS: ADMIT Family Medicine; ATTEND Family Medicine
DX: A41.9 Sepsis, unspecified organism (principal); I21.A1 Myocardial infarction type 2; N17.9 Acute kidney failure, unspecified; I25.10 Atherosclerotic heart disease of native coronary artery without angina pectoris; E11.40 Type 2 diabetes mellitus with diabetic neuropathy, unspecified; E03.9 Hypothyroidism, unspecified; E78.5 Hyperlipidemia, unspecified; E87.6 Hypokalemia; E87.70 Fluid overload, unspecified; F32.A Depression, unspecified; Z60.2 Problems related to living alone; Z20.822 Contact with and (suspected) exposure to COVID-19; R19.7 Diarrhea, unspecified; F41.9 Anxiety disorder, unspecified; I87.2 Venous insufficiency (chronic) (peripheral); R06.03 Acute respiratory distress; I10 Essential (primary) hypertension; J44.9 Chronic obstructive pulmonary disease, unspecified; K21.9 Gastro-esophageal reflux disease without esophagitis; Z66 Do not resuscitate; Z79.02 Long term (current) use of antithrombotics/antiplatelets; Z79.82 Long term (current) use of aspirin; Z79.899 Other long term (current) drug therapy; I25.2 Old myocardial infarction; Z80.0 Family history of malignant neoplasm of digestive organs; Z83.3 Family history of diabetes mellitus; Z87.891 Personal history of nicotine dependence; Z95.5 Presence of coronary angioplasty implant and graft
CPT/HCPCS: 36415; 36600; 70450; 71045; 71250; 71275; 74176; 80053; 80061; 80202; 81001; 82803; 82948; 83036; 83605; 83735; 83880; 84100; 84145; 84443; 84484; 85018; 85025; 85379; 85610; 85651; 85730; 87040; 87045; 87046; 87081; 87324; 87449; 87502; 87503; 87635; 87811; 87880; 89055; 93005; 93306; 94640; 94760; 96365; 97116; 97161; 97530; 99285; A4314; A4615; A6258; C1758; C9803; G0378; J0696; J1644; J1815; J1940; J2405; J2543; J2930; J3370; J3490; J7030; J7050; J7120; Q9967

== ENCOUNTER 2022-06-23 13:29 | Emergency (ER) | payer MEDICARE ==
[~2022-06-23] VITALS: Ht 152.4 cm; Wt 92.6 kg
[~2022-06-23 13:29] MED LIST changes: +ASPI81TA53 PO; -ATOR10TA70 PO; +ATOR40TA72 PO; +CLOP75TA34 PO; +LACT1CAP26 PO; +NYST1000 PO; +OXYB10TA30 PO
[2022-06-23 15:25] LABS: MEAN CORPUSCULAR HGB CONC 33.5 g/dL (33.0-36.5); NEUTROPHILS # (AUTO) 3.8 X10'3 (1.8-7.7); PLATELET COUNT 131 X10'3 (140-440); WHITE BLOOD COUNT 5.6 X10'3 (4.5-11.0)
[2022-06-23 15:26] LABS: BASOPHILS % (AUTO) 0.7 % (0-1); EOSINOPHILS # (AUTO) 0.2 X10'3 (0-0.9); EOSINOPHILS % (AUTO) 3.8 % (0-6); HEMATOCRIT 37.9 % (35.0-45.0); HEMOGLOBIN 12.7 g/dl (12.0-16.0); LYMPHOCYTES # (AUTO) 1.3 X10'3 (1.1-4.8); LYMPHOCYTES % (AUTO) 23.6 % (21-51); MEAN CORPUSCULAR HEMOGLOBIN 32.2 PG (27.0-31.0); MEAN CORPUSCULAR VOLUME 96.3 FL (78-98); MEAN PLATELET VOLUME 8.4 FL (7.4-10.4); MONOCYTES # (AUTO) 0.3 X10'3 (0-0.9); NEUTROPHILS % (AUTO) 66.9 % (42-75); RED BLOOD COUNT 3.93 X10'6 (4.20-5.60); RED CELL DISTRIBUTION WIDTH 15.2 % (11.5-14.5)
[2022-06-23 15:38] LABS: ALANINE AMINOTRANSFERASE 256 U/L (12-78); ALBUMIN 3.7 G/DL (3.4-5.0); ALBUMIN/GLOBULIN RATIO 1.1 (1.1-1.5); ALKALINE PHOSPHATASE 50 IU/L (46-116); ANION GAP 5 (8-16); ASPARTATE AMINO TRANSFERASE 291 U/L (10-37); BILIRUBIN,TOTAL 0.4 MG/DL (0.1-1.0); BLOOD UREA NITROGEN 21 MG/DL (7-18); BUN/CREATININE RATIO 12.3 (10.0-20.0); C-REACTIVE PROTEIN 0.05 MG/DL (0.0-0.5); CALCIUM 9.2 MG/DL (8.5-10.1); CHLORIDE 104 MMOL/L (99-107); CREATININE 1.71 MG/DL (0.40-0.90); GLUCOSE 124 MG/DL (70-104); MAGNESIUM 2.4 MG/DL (1.5-2.4); POTASSIUM 4.3 MMOL/L (3.5-5.1); SODIUM 140 MMOL/L (135-145); TOTAL CARBON DIOXIDE 30.9 MMOL/L (24-32); eGFR 29 ML/MIN
[2022-06-23 16:05] VITALS: BP 150/88
[2022-06-23 16:08] LABS: CLARITY,URINE CLEAR (Clear); COLOR,URINE YELLOW (Yellow); GLUCOSE, URINE >=1000 mg/dl (Neg); KETONES,URINE NEGATIVE (Neg); LEUKOCYTE ESTERASE ,URINE NEGATIVE (Neg); NITRITES, URINE NEGATIVE (Neg); OCCULT BLOOD,URINE TRACE-INTACT (Neg); PH,URINE 6.5 (4.8-8.0); PROTEIN,URINE NEGATIVE (Neg)
[2022-06-23 16:15] LABS: UA COLLECTION TYPE CLN CATCH MIDSTREAM
[2022-06-23 16:25] LABS: BACTERIA,URINE NONE SEEN /HPF (Neg); RBC,URINE NONE SEEN /HPF (0-2); WBC,URINE 0-4 /HPF (0-4)
[2022-06-23 16:26] LABS: SQUAMOUS EPITHELIAL CELL,UR FEW /LPF (FEW)
== END 2022-06-23 17:02 | disposition home or self-care (01) ==
LOC: ER 13:30
DX: G51.0 Bell's palsy (principal); G62.9 Polyneuropathy, unspecified; E86.0 Dehydration; N28.9 Disorder of kidney and ureter, unspecified; R74.01 Elevation of levels of liver transaminase levels; J44.9 Chronic obstructive pulmonary disease, unspecified; K21.9 Gastro-esophageal reflux disease without esophagitis; E11.9 Type 2 diabetes mellitus without complications
CPT/HCPCS: 36415; 70450; 80053; 81001; 83735; 85025; 85651; 86140; 99284